=== PATIENT | female | born 1990 | race Caucasian/White ===

== ENCOUNTER 2025-01-09 03:39 | Outpatient (CLI) | payer OTHER, SELFPAY ==
[2025-01-09 17:12] LABS: Abs Immature Grans 0.04 10^3/uL (0.0-0.06); HCT 38.4 % (36.0-46.0); HGB 13.3 g/dL (11.2-15.7); Immature Grans % 0.4 %; MCH 28.9 pg (27.0-33.0); MCHC 34.6 % (32.0-36.0); MCV 83 fL (80-95); MPV 8.8 fL (8.0-11.0); Platelet Count 266 10^3/uL (130-400); RBC 4.61 10^6/uL (3.93-5.22); RDW 12.6 % (11.7-14.6); RDW-SD 38.4 fL; WBC 11.21 10^3/uL (4.4-10.8)
[2025-01-09 17:29] LABS: Hemoglobin A1C 5.3 % (<5.7)
[2025-01-09 18:07] LABS: TSH (W/Ref FT4) 2.06 uIU/mL (0.36-3.74)
[2025-01-10 19:11] LABS: HIV-1/2 Ag & Ab Screen Negative (Negative)
[2025-01-10 19:13] LABS: Hepatitis C Ab w Rflx HCV PCR Negative (Negative)
[2025-01-11 08:47] LABS: Rubella IgG Ab (UVM) Positive (See Note)
[2025-01-14 19:48] LABS: Syphilis IgG w/Reflex Nonreactive (Nonreactive)
== END 2025-01-09 03:40 | disposition home or self-care (01) ==
LOC: LBO 03:39
PROVIDERS: Visit Provider Advanced Practice Midwife
DX: Z34.91 Encounter for supervision of normal pregnancy, unspecified, first trimester (principal); Z68.31 Body mass index [BMI] 31.0-31.9, adult
CPT/HCPCS: 36415; 81220; 81222; 81329; 86787; 86803; 86850; 86900; 86901; 87340; 87389; 83036; 84443; 85025; 86762; 86780

== ENCOUNTER 2025-01-09 16:00 | Outpatient (REF) | payer OTHER, SELFPAY | END 2025-01-09 16:01 | disposition home or self-care (01) | LOC: LBN 16:00 | PROVIDERS: Visit Provider Advanced Practice Midwife | DX: Z34.91 Encounter for supervision of normal pregnancy, unspecified, first trimester (principal); Z3A.11 11 weeks gestation of pregnancy | CPT/HCPCS: 87491; 87591; 87086 ==

== ENCOUNTER 2025-02-06 17:50 | Outpatient (REF) | payer OTHER, MEDICAID, SELFPAY ==
[2025-02-08 11:23] LABS: Chlamydia Result Negative (Negative); GC Result Negative (Negative)
== END 2025-02-06 17:51 | disposition home or self-care (01) ==
LOC: LBN 17:50
PROVIDERS: Visit Provider Obstetrics & Gynecology
DX: Z34.91 Encounter for supervision of normal pregnancy, unspecified, first trimester (principal)
CPT/HCPCS: 87491; 87591

== ENCOUNTER 2025-03-08 05:31 | Outpatient (CLI) | payer MEDICAID, SELFPAY ==
--- NOTE | 2025-03-08 06:00 | DI.US_ITS ---
Exam(s) US OB 2-3 TRIMESTER EXAM: US OB 2-3 TRIMESTER CLINICAL HISTORY: Anatomy Scan, Z34.91. TECHNIQUE: Transabdominal obstetrical ultrasound performed. COMPARISON: US POCUS EXAM from 12/12/2024 FINDINGS: Number of fetuses: 1 position: VARIED Placental location: POSTERIOR No evidence of previa. Cervical length: 6.4 cm. BIOMETRIC DATA: BPD: 4.79cm, 20weeks 3days HC: 18.01cm, 20weeks 3days AC: 15.69cm, 20weeks 6days FL: 3.15cm, 19weeks 6days Cisterna magna: 3.1mm Cerebellum: 1.8cm Lateral ventricle: 5 EFW: 349.37g, 0.79lb, 87.5% Composite Age: 20weeks 3days KAVYA: 07/23/[birth year]25 Heart Rate: 131bpm Amniotic fluid : Amount of fluid is visualized within normal limits. ANATOMICAL SURVEY: Four-chambered heart: Unremarkable. LVOT: Unremarkable. RVOT: Unremarkable. Left-sided stomach: Unremarkable. urinary bladder: Unremarkable. Bilateral kidneys: Unremarkable. Three-vessel cord: Unremarkable. Cord insertion: Unremarkable. Posterior fossa:Unremarkable. ventricles: Unremarkable. nose: Unremarkable. lips: Unremarkable. palate: Unremarkable. spine: Unremarkable. Two arms and two legs: Unremarkable. IMPRESSION: 1. Single live intrauterine gestation with composite age of 20 weeks 3 days. 2. Normal anatomic survey. DATA REPOSITORY:
== END 2025-03-08 05:51 ==
PROVIDERS: Visit Provider Advanced Practice Midwife
DX: Z34.91 Encounter for supervision of normal pregnancy, unspecified, first trimester (principal); Z3A.20 20 weeks gestation of pregnancy
CPT/HCPCS: 76805

== ENCOUNTER 2025-04-05 13:43 | Emergency (ER) | payer MEDICAID, SELFPAY ==
[2025-04-05 13:45] VITALS: BP 135/77; PULSE 98; RESP 16; TEMP 36.3; O2SAT 98
[2025-04-05 13:48] VITALS: BP 135/77; PULSE 98; RESP 16; TEMP 36.3; O2SAT 98
--- NOTE | 2025-04-05 14:00 | DI.RAD_ITS ---
Exam(s) XR CHEST 2V PA LATERAL EXAM: XR CHEST 2V PA LATERAL CLINICAL HISTORY: 3-5 weeks cough, URI symptoms, eval PNA. TECHNIQUE: 2D digital imaging was performed. COMPARISON: No exams were available for comparison FINDINGS: 2 views: Heart size is normal. The mediastinum is not widened. Lungs are clear. No infiltrates nor pleural effusions. IMPRESSION: No acute pulmonary findings. DATA REPOSITORY: RADIATION DOSE DELIVERED:
--- NOTE | 2025-04-05 14:06 | ED.GENADUL_ITS ---
Discharge Plan Disposition Patient Disposition: Home Condition: Stable Discharge Details Clinical Impression: Bronchitis, Cough, , Asthma Primary Care Provider: Unknown,Unknown ED Provider: Dina Lee Home Meds and New Rx's Prescriptions: New clotrimazole [Clotrimazole-7] 1 % cream 1 appful vaginal QHS 7 Days Qty: 45 0RF azithromycin [Zithromax Z-Jhonatan] 250 mg tablet See Rx Instructions .ROUTE .COMPLEX Qty: 6 0RF Rx Instructions: For 250 mg dose pack: take 500 mg today (day 1), then 250 mg for 4 days (days 2-5) amoxicillin-pot clavulanate 875-125 mg tablet 1 tab PO BID 5 Days Qty: 10 0RF budesonide-formoterol [Symbicort] 80-4.5 mcg/actuation HFA aerosol inhaler 2 puff inhalation BID Qty: 10.2 0RF No Action Classic 28 mg iron- 800 mcg tablet 1 tab PO DAILY pyridoxine (vitamin B6) 25 mg tablet 25 mg PO TID PRN albuterol sulfate [Ventolin HFA] 90 mcg/actuation HFA aerosol inhaler 2 puff inhalation Q6H PRN pantoprazole [Protonix] 20 mg tablet,delayed release (DR/EC) 40 mg PO DAILY Qty: 30 6RF diphenhydramine HCl [Benadryl] 25 mg capsule 25 mg PO QHS PRN Discharge Instructions Instructions: Bronchitis, Adult ED Additional Instructions: You were seen in the emergency department today for evaluation of ongoing cough and shortness of breath for the last several weeks. In our department he had a full physical examination performed, and had laboratory studies that did show a slight elevation in your white blood cell count, which can be due to infection or your recent prednisone use. You had no significant elevation in your blood clot lab and I am most concerned after reviewing your workup for bronchitis. Your x-ray did not show any large areas of pneumonia, but given the duration of symptoms next steps in management would be to start you on a course of 2 antibiotics to cover the most common bacteria that can cause bronchitis, especially in folks who have asthma. You had prescription sent for azithromycin and Augmentin, 2 medications that are both safe in and work together to treat the most common bacteria that can cause lung infections. Additionally, I sent a prescription for the vaginal cream clotrimazole to treat yeast infections as a result of these antibiotics. Unfortunately, the oral medications for yeast infections are not considered safe in . Please take all of the antibiotics until they are gone, even if you start to feel better. I want you to continue to use your albuterol and inhalers for wheezing and shortness of breath. Please follow-up with your primary care provider in the next few days to discuss this visit and any symptoms that change, worsen, or persist. Thank you for allowing us to be part of your care. HPI General Mode of arrival: ambulatory . Date/Time Provider Initiated Documentation: 04/05/25 13:47 . Limitations to Documentation: no limitations . Information obtained by: patient, family, RN/MD and old records reviewed . HPI Narrative: This is a 34-year-old female, G2, P0 at 23 weeks and 4 days gestation, with a history of asthma, presenting for evaluation of several weeks of shortness of breath, cough, and upper respiratory symptoms. The patient reports that over a month ago she started with a sore throat, some voice changes, and fullness in her ears. She had tender lymphadenopathy in her anterior neck, was experiencing nasal congestion. She was treated with amoxicillin and steroids for a presumed sinus infection. She completed those courses of medications, feels like her ears have cleared up, and her lymphadenopathy is improving. She is no longer having fevers. However, her shortness of breath and cough have worsened. She has completed another steroid taper, and was started on nebulizers at home. She reports that these work only for the first few hours, she has frequent episodes of posttussive emesis and stress incontinence during coughing fits. She reports that her muscles of her chest and her abdomen are quite sore during coughing. She has a cough that is occasionally productive of blood-tinged yellow sputum, though she does not endorse isolated hemoptysis. Reports that she has not noticed any swelling in her lower extremities, calf tenderness. She is not experiencing any contractions, vaginal bleeding or discharge, though she did complete treatment for a vaginal yeast infection after taking the amoxicillin. Related Data Home Medications ?Medication ?Instructions ?Recorded ?Confirmed vits no.126-ferrous fum 1 tab PO DAILY 04/05/25 28 mg iron-folic acid 800 mcg tablet (Classic ) albuterol sulfate 90 mcg/actuation 2 puff inhalation Q 6H PRN 01/09/25 04/05/25 aerosol inhaler (Ventolin HFA) pyridoxine (vitamin B6) 25 mg 25 mg PO TID PRN 5 04/05/25 tablet pantoprazole 20 mg tablet,delayed 40 mg (2 x 20 mg) PO DAILY #30 tabs 02/06/25 04/05/25 release (Protonix) diphenhydramine HCl 25 mg capsule 25 mg PO QHS PRN 11/2504/05/25 (Benadryl) amoxicillin 875 mg-potassium 1 tab PO BID 5 days #10 t abs 04/05/25 clavulanate 125 mg tablet azithromycin 250 mg tablet See Rx Instructions PO .COM PLEX #6 04/05/25 (Zithromax Z-Jhonatan) tabs budesonide-formoterol HFA 80 2 puff inhalation BID #10 .2 grams 04/05/25 mcg-4.5 mcg/actuation aerosol inhaler (Symbicort) clotrimazole 1 % vaginal cream 1 appful vaginal QHS 7 days #45 04/05/25 (Clotrimazole-7) grams Previous Rx's ?Medication ?Instructions ?Recorded pantoprazole 20 mg tablet,delayed 40 mg (2 x 20 mg) PO DAILY #30 tabs 02/06/25 release (Protonix) amoxicillin 875 mg-potassium 1 tab PO BID 5 days #10 t abs 04/05/25 clavulanate 125 mg tablet azithromycin 250 mg tablet See Rx Instructions PO .COM PLEX #6 04/05/25 (Zithromax Z-Jhonatan) tabs budesonide-formoterol HFA 80 2 puff inhalation BID #10 .2 grams 04/05/25 mcg-4.5 mcg/actuation aerosol inhaler (Symbicort) clotrimazole 1 % vaginal cream 1 appful vaginal QHS 7 days #45 04/05/25 (Clotrimazole-7) grams Allergies Allergy/AdvReac Type Severity Reaction Status Date / Time animal dander Allergy Intermediate Other (See Verified 04/05/25 12:48 Comment) General Stated Complaint: RespSymp MARY CARMEN: 3 Exam Narrative Exam Narrative: Gen: Awake and alert, appears ill HEENT: Non-icteric sclera, PERRL. Posterior pharynx without erythema, exudate, or asymmetry/swelling Neck: Supple, full range of motion, no significant tender anterior cervical lymphadenopathy Lungs: The patient appears notably tachypneic, with increased work of breathing. Her lung sounds are clear and equal bilaterally without wheezing, rhonchi, rales CV: Appears well perfused, heart with borderline tachycardic rate and regular rhythm, strong distal pulses, no murmurs auscultated Abdomen: Gravid, soft, nontender to palpation. Uterine fundus is palpable just above the umbilicus. No rigidity, rebound, or guarding MSK: Moves 4 extremities without apparent limitation in ROM. No unilateral calf swelling or tenderness, no peripheral edema Skin: Visualized skin without rashes, cyanosis. Neuro: Normal Gait, no obvious focal deficits or facial asymmetry. Speaks in full, clear sentences. Psych: Appropriate for situation. Course Vital Signs Vital signs: Vital Signs Temperature 36.3 C L 04/05/25 13:45 Pulse 98 H 04/05/25 13:45 Respiratory Rate 16 04/05/25 13:45 Blood Pressure 135/77 04/05/25 13:45 Pulse Oximetry 98 04/05/25 13:45 Temperature 36.3 C L 04/05/25 13:48 Pulse 98 H 04/05/25 13:48 Respiratory Rate 16 04/05/25 13:48 Blood Pressure 135/77 04/05/25 13:48 Pulse Oximetry 98 04/05/25 13:48 Pain Level 3 04/05/25 13:48 Medical Decision Making This is a 34-year-old female patient presenting for evaluation of several weeks of viral upper respiratory symptoms, cough, and shortness of breath. Different ial includes but is not limited to infectious pathologies including viral upper respiratory infection, bronchitis, pneumonia. I certainly considered reactive airway disease exacerbation given her history of asthma, though the patient is reassuringly without significant wheezing on exam today. She has no history of heart failure and I do not appreciate evidence of fluid overload to suggest pulmonary edema or pleural effusion. I must consider pulmonary embolism in this patient who is and is tachypneic beyond expectations for . The physical examination is less concerning for pneumothorax, and fortunately, the patient has no evidence of hypoxia or new oxygen requirement. She had appropriate heart tones on Doppler at her visit today and is not experiencing any related complaints such as vaginal bleeding, abdominal pain or uterine contractions, or vaginal discharge. I do note a very slightly elevated blood pressure, though below Pre-E parameters at 135/77, will recheck and ensure the patient does not meet criteria for gestational hypertension/preeclampsia. We will obtain labs to include CBC, CMP, magnesium, D-dimer, Monospot, urinalysis, and Fluvid. I will obtain a chest x-ray. Given the patient's concern for inadequate hydration given her posttussive emesis and attempts to limit fluids given the urge incontinence during coughing, it is reasonable to provide her with a liter of IV fluids while awaiting results of the workup. - I reviewed the patient's laboratory studies, which reveal a leukocytosis to 15, potentially due to infection versus recent prednisone use. A very mild anemia and no thrombocytopenia is appreciated. Chemistry panel without electrolyte derangements, evidence of kidney dysfunction or liver pathology. Urinalysis not infectious and without hematuria, ketonuria, or proteinuria. Her D-dimer is in the intermediate range at 886, and this patient with a compelling infectious story, and without true hemoptysis, she meets years criteria for rule out with a cutoff of 1000. I did review the patient's x-ray, which does not show any lobar pneumonia, evidence of pulmonary edema, or other focal abnormalities. On my reevaluation the patient remains without elevation in blood pressure, new hypoxia, or tachycardia. The duration of her symptoms is most concerning for acute bronchitis. It has been several weeks since her last course of antibiotics, and at this time I would recommend initiating a 5-day course each of azithromycin and Augmentin. These prescriptions were sent to the pharmacy, and were thoroughly reviewed and are safe for use in . The patient has a history of yeast infections with antibiotic use, and topical clotrimazole was provided. The patient did request an oral agent, but oral fluconazole has not been shown to be safe during and she is amenable to the topical agent. I also sent a prescription for a Symbicort inhaler, after reviewing the HEALTH SERVICES MANAGER notes. I did send a message notifying the HEALTH SERVICES MANAGER of the workup and actions taken today in the ED. At this time, the patient has had a full medical evaluation and is safe for discharge to home. They are hemodynamically stable, ambulatory, and tolerating PO. They are understanding of the follow-up plan and return precautions. They left our facility without incident. Dina Lee MD [facility] All Active Problems (Updated 04/05/25 @ 16:08 by Dina Lee MD) Cough (Acute) Bronchitis (Acute) IBS (irritable bowel syndrome) (Chronic) BMI 31.0-31.9,adult (Acute) (Acute) Amenorrhea (Acute) Hives (Acute) Acid reflux (Chronic) Asthma (Chronic) Medical History Herpes genitalia Anxiety Surgical History [place] teeth extracted History of tonsillectomy Family History Other Diabetes Heart disease Stroke Social History Smoking risk assessment performed?: No Alcohol Intake: current History History 2 Para 0 Hx # Term Pregnancies 0 Multiple births 0 Hx # Pregnancies 0 Ectopic pregnancies 0 AB induced 0 Hx Number of Living Children 0 AB spontaneous 1 Past Pregnancies Del. Date GA/Weeks # Preg Succ Route Wgt Sex Labor Lgth Anesth esia Location Prov Complic 08/18/13 No Delivery Date: 08/18/13 Last Updated by: Silva Meyer LPN therapeutic ab
[2025-04-05] MEDS: Lactated Ringers 1,000 ML 1000 ML IV (14:48)
[2025-04-05 14:49] LABS: Abs Immature Grans 0.17 10^3/uL (0.0-0.06); HCT 33.3 % (36.0-46.0); HGB 11.0 g/dL (11.2-15.7); Immature Grans % 1.1 %; MCH 27.7 pg (27.0-33.0); MCHC 33.0 % (32.0-36.0); MCV 84 fL (80-95); MPV 8.7 fL (8.0-11.0); Platelet Count 266 10^3/uL (130-400); RBC 3.97 10^6/uL (3.93-5.22); RDW 13.0 % (11.7-14.6); RDW-SD 38.9 fL; WBC 15.53 10^3/uL (4.4-10.8)
[2025-04-05 15:02] LABS: Mono Screening Negative (Negative)
[2025-04-05 15:03] LABS: COVID-19 PCR Negative (Negative); RSV PCR Negative (Negative)
[2025-04-05 15:14] LABS: Glucose Negative (Negative)
[2025-04-05 15:18] LABS: D-Dimer 886 ng/mlFEU (<500)
[2025-04-05 15:40] LABS: ALT 57 U/L (14-59); AST 26 U/L (15-37); Albumin 2.8 g/dL (3.4-5.0); Alkaline Phosphatase 122 U/L (46-116); Anion Gap 11.8 mmol/L (3-11); BUN 5 mg/dL (7-18); Bilirubin, Total 0.3 mg/dL (0.2-1.0); CO2 24.2 mmol/L (21.0-32.0); Calcium 9.2 mg/dL (8.5-10.1); Chloride 102 mmol/L (98-107); Estimated GFR 121.47 (mL/min/1.73m2); Glucose 88 mg/dL (74-106); Magnesium 2.2 mg/dL (1.8-2.4); Potassium 3.5 mmol/L (3.5-5.1); Sodium 138 mmol/L (136-145); Total Protein 7.3 g/dL (6.4-8.2)
== END 2025-04-05 16:21 | disposition home or self-care (01) ==
PROVIDERS: Emergency Provider Emergency Medicine
DX: J40 Bronchitis, not specified as acute or chronic (principal); J45.909 Unspecified asthma, uncomplicated; Z3A.23 23 weeks gestation of pregnancy
CPT/HCPCS: 36415; 80053; 87637; 96360; 99284; 71046; 81003; 83735; 85025; 85379; 86308

== ENCOUNTER 2025-04-17 00:15 | Outpatient (CLI) | payer MEDICAID, SELFPAY ==
--- NOTE | 2025-04-17 15:00 | DI.US_ITS ---
Exam(s) US OB ESTEE WEIGHT EXAM: US OB ESTEE WEIGHT CLINICAL HISTORY: obesity in ,IUGR,o36.5990. TECHNIQUE: Transabdominal obstetrical ultrasound performed. COMPARISON: US POCUS EXAM from 12/12/2024 US US OB 2-3 TRIMESTER from 03/08/2025 FINDINGS:: Number of fetuses: 1 position: Variable Placental location: Posterior. No evidence of previa. Placental tip measures greater than 5 cm from the internal os. BIOMETRIC DATA: BPD: 69 mm, 27+ 4 weeks HC: 246 mm, 26+ 5 weeks AC: 216 mm, 26+ 0 weeks FL: 51 mm, 27+ 0 weeks EFW: 955 grams, 90th percentile, Composite Age: 26+ 6 weeks KAVYA: 18 July 2025 Heart Rate: 161 Amniotic fluid index: 26.3. Polyhydramnios. IMPRESSION: size is measuring greater than 1 week larger than gestational age. ESTEE 26.3, consistent with polyhydramnios. DATA REPOSITORY:
== END 2025-04-17 00:35 ==
LOC: DI 00:15
PROVIDERS: Visit Provider Obstetrics & Gynecology
DX: O36.5931 Maternal care for other known or suspected poor fetal growth, third trimester, fetus 1 (principal); Z3A.27 27 weeks gestation of pregnancy; O99.212 Obesity complicating pregnancy, second trimester
CPT/HCPCS: 76816

== ENCOUNTER 2025-04-24 01:41 | Outpatient (CLI) | payer MEDICAID, SELFPAY ==
[2025-04-24 16:36] LABS: Abs Immature Grans 0.23 10^3/uL (0.0-0.06); HCT 33.0 % (36.0-46.0); HGB 11.0 g/dL (11.2-15.7); Immature Grans % 1.8 %; MCH 27.8 pg (27.0-33.0); MCHC 33.3 % (32.0-36.0); MCV 84 fL (80-95); MPV 8.9 fL (8.0-11.0); Platelet Count 216 10^3/uL (130-400); RBC 3.95 10^6/uL (3.93-5.22); RDW 13.0 % (11.7-14.6); RDW-SD 39.5 fL; WBC 12.94 10^3/uL (4.4-10.8)
[2025-04-24 16:41] LABS: Glucose,1 Hr (Glucola) 139 mg/dL (80-140)
== END 2025-04-24 01:42 | disposition home or self-care (01) ==
LOC: LBO 01:41
PROVIDERS: Visit Provider Obstetrics & Gynecology
DX: O40.3XX0 Polyhydramnios, third trimester, not applicable or unspecified (principal); Z34.93 Encounter for supervision of normal pregnancy, unspecified, third trimester
CPT/HCPCS: 36415; 82950; 85025

== ENCOUNTER 2025-05-03 03:42 | Outpatient (CLI) | payer MEDICAID, SELFPAY | END 2025-05-03 03:43 | disposition home or self-care (01) | PROVIDERS: Visit Provider Obstetrics & Gynecology | DX: R73.09 Other abnormal glucose (principal); O40.9XX0 Polyhydramnios, unspecified trimester, not applicable or unspecified | CPT/HCPCS: 36415; 82951 ==

== ENCOUNTER 2025-05-07 11:45 | Outpatient (CLI) | payer MEDICAID, SELFPAY ==
--- NOTE | 2025-05-07 13:16 | TELEFU_ITS ---
Documented by User: Gisella Yuen 05/07/25 14:18 Date of service: 05/07/25 Time of Service: 12:30 Nutrition Note NOTE: Met and discussed with patient via phone. Pt was recently diagonsed w/ gestational DM after exceeding BG values at the 2 hr and 3 hr denis of the two-step diagnostic test. Has a family history of type 2 DM from her mom's side. Has IBS. Dealt with constipation in the first trimester, currently has 4 BM a day. Currently in the 3rd trimester. Just started checking blood sugars last night, and was instructed to check first thing in the morning and once after every meal, usually about 1 hr after eating. Has been having irregular sleep patterns d/t to the baby being active at night. Pt usually wakes up at 4:30AM to have breakfast, usually honey oats, whole grain toast w/ peanut butter, and milk. Will then go back to bed and wake up again at 7:30am to have a snack, then has lunch between 12-12:30, usually has multiple snacks at 3, 4, or 5pm, and then dinner between 7-9pm. Dinner is usually the biggest meal and the only time she is sitting down with family to eat. Does not have a snack after dinner. Usually consumes chicken, salmon, turkey. Dislikes water, so she will have a 30 oz becca of juice diluted w/ water. Has finger foods at work so that it is easy to consume. She reports a blood sugar of 76 this morning. Educated pt on the importance of eating enough carbs (especially fiber) and aiming for 2L of fluid intake to support a healthy , recommending she consumes around 200g of carbs a day, which can be divided up between meals and snacks. Pt was educated on 1 serving = 15 g carbs; to hit her goal of 200g she would have to consume about 13-14 servings of carbs per day, about 4.5 servings of carbs per meal. Spoke about differences in sugar level/serving sizes of whole fruit vs fruit juice vs dried fruit, snack alternatives such as nuts/seeds and plant-based milks, and importance of checking blood sugars regularly throughout the day, especially 1 hr after eating. Pt requested education handouts to support discussion we had on carbs, which will be sent via email. Pt also requested sample menus to be sent. Pt is aware that she can contact the dietitian for any questions/concerns as needed. Time Spent in Nutritional Counseling and Treatment: 30 mins Documented by User: Efren Gorman RDN 05/07/25 14:20 Nutrition Note NOTE: Met and discussed with patient via phone. Pt was recently diagonsed w/ gestational DM after exceeding BG values at the 2 hr and 3 hr denis of the two-step diagnostic test. Has a family history of type 2 DM from her mom's side. Has IBS. Dealt with constipation in the first trimester, currently has 4 BM a day. Currently in the 3rd trimester. Just started checking blood sugars last night, and was instructed to check first thing in the morning and once after every meal, usually about 1 hr after eating. Has been having irregular sleep patterns d/t to the baby being active at night. Pt usually wakes up at 4:30AM to have breakfast, usually honey oats, whole grain toast w/ peanut butter, and milk. Will then go back to bed and wake up again at 7:30am to have a snack, then has lunch between 12-12:30, usually has multiple snacks at 3, 4, or 5pm, and then dinner between 7-9pm. Dinner is usually the biggest meal and the only time she is sitting down with family to eat. Does not have a snack after dinner. Usually consumes chicken, salmon, turkey. Dislikes water, so she will have a 30 oz becca of juice diluted w/ water. Has finger foods at work so that it is easy to consume. She reports a blood sugar of 76 this morning. Educated pt on the importance of eating enough carbs (especially fiber) and aiming for 2L of fluid intake to support a healthy , recommending she consumes around 200g of carbs a day, which can be divided up between meals and snacks. Pt was educated on 1 serving = 15 g carbs; to hit her goal of 200g she would have to consume about 13-14 servings of carbs per day, about 4.5 servings of carbs per meal. Spoke about differences in sugar level/serving sizes of whole fruit vs fruit juice vs dried fruit, snack alternatives such as nuts/seeds and plant-based milks, and importance of checking blood sugars regularly throughout the day, especially 1 hr after eating. Pt requested education handouts to support discussion we had on carbs, which will be sent via email. Pt also requested sample menus to be sent. Pt is aware that she can contact the dietitian for any questions/concerns as needed. This document reviewed and approved by Efren Gorman RDN (food and beverage intern preceptor)
== END 2025-05-07 11:46 | disposition home or self-care (01) ==
LOC: DS 11:45
PROVIDERS: Visit Provider Dietitian, Registered
DX: O24.410 Gestational diabetes mellitus in pregnancy, diet controlled (principal); Z3A.28 28 weeks gestation of pregnancy
CPT/HCPCS: 00123; 97802

== ENCOUNTER → 2025-05-22 02:02 | Outpatient (CLI) | payer MEDICAID, SELFPAY ==
--- NOTE | 2025-05-22 06:15 | DI.US_ITS ---
Exam(s) US OB ESTEE WEIGHT EXAM: US OB ESTEE WEIGHT CLINICAL HISTORY: Polyhydramnios,o40.9XX0. TECHNIQUE: Transabdominal obstetrical ultrasound was performed. COMPARISON: US US OB ESTEE WEIGHT from 04/17/2025 FINDINGS: There is a single viable intrauterine gestation with cardiac activity identified-157 bpm The fetus is presently in cephalic position . Amniotic fluid: There is a normal amount of amniotic fluid with an ESTEE of 15.2cm. Placental location: The placenta is posterior grade 1,with no evidence of placenta previa. Dating parameters place this at approximately 31 weeks and 6 days gestational age, implying KAVYA of 07/18/2025. BPD measures 31 weeks and 2 days HC measures 32 weeks and 5 days AC measures 32 weeks and 0 days FL measures 31 weeks and 2 days Estimated weight is 1847 gm-4 pounds, 1 ounce Fetus is at the 87th percentile on the Hadlock scale. IMPRESSION:: Viable 3rd trimester gestation, as described above. DATA REPOSITORY:
== END ==
LOC: DI 02:02
PROVIDERS: Visit Provider Obstetrics & Gynecology
DX: O40.3XX1 Polyhydramnios, third trimester, fetus 1 (principal); Z3A.32 32 weeks gestation of pregnancy
CPT/HCPCS: 76816

== ENCOUNTER 2025-06-06 14:33 | Outpatient (CLI) | payer MEDICAID, SELFPAY ==
[2025-06-06 14:41] VITALS: BP 116/71; PULSE 86; TEMP 36.7
[2025-06-06 14:50] VITALS: BP 116/71; PULSE 86
[2025-06-06 16:46] VITALS: BP 116/71; PULSE 86; TEMP 36.7
--- NOTE | 2025-06-06 16:46 | W.OBNST ---
Date of service: 06/06/25 Time of Service: 16:46 NST Evaluation Reason for NST Reasons for Nonstress Test: GDM-DIET CONTROLLED Gestational Age Gestational Age in Weeks and Days: 32 Weeks and 3Days Test and Monitor Explained Test/Monitor Explained: Test Explained and Monitor Explained Vital Signs Blood Pressure: 116/71 Pulse: 86 Temperature: 98.1 F Weight: 189 lb Urine Results Urine Protein: Negative Urine Ketones: Negative Urine Glucose: Negative Urine Blood: Negative NST Information Date on Monitor: 06/06/25 Time on Monitor: 14:48 NST Evaluation Patient States Movement: Present FHR Baseline: 135 Variability: Moderate 6-25 bpm Accelerations: 15x15 Decelerations: None NST Results: Reactive Note Ultrasound Done: N/A. NST Note Note: Reactive, category I NST NST Reviewed and Verified by: Maria Luisa Craven
== END 2025-06-06 15:25 ==
LOC: BCD 14:33 → OBS 14:37
PROVIDERS: Visit Provider Obstetrics & Gynecology
DX: O24.410 Gestational diabetes mellitus in pregnancy, diet controlled (principal); Z3A.32 32 weeks gestation of pregnancy
CPT/HCPCS: 59025

== ENCOUNTER 2025-06-12 15:30 | Outpatient (CLI) | payer MEDICAID, SELFPAY ==
[2025-06-12 15:43] VITALS: BP 119/63; PULSE 86; TEMP 36.6
[2025-06-12 16:41] LABS: Abs Immature Grans 0.05 10^3/uL (0.0-0.06); HCT 31.8 % (36.0-46.0); HGB 10.8 g/dL (11.2-15.7); Immature Grans % 0.5 %; MCH 27.7 pg (27.0-33.0); MCHC 34.0 % (32.0-36.0); MCV 82 fL (80-95); MPV 9.4 fL (8.0-11.0); Platelet Count 201 10^3/uL (130-400); RBC 3.90 10^6/uL (3.93-5.22); RDW 13.8 % (11.7-14.6); RDW-SD 40.8 fL; WBC 9.33 10^3/uL (4.4-10.8)
[2025-06-12 17:07] LABS: ALT 27 U/L (10-49); AST 18 U/L (<34); Albumin 3.4 g/dL (3.2-5.0); Alkaline Phosphatase 119 U/L (46-116); Anion Gap 9.9 mmol/L (3-11); BUN 11 mg/dL (9-23); Bilirubin, Total 0.3 mg/dL (0.2-1.2); CO2 23.1 mmol/L (20.0-31.0); Calcium 8.7 mg/dL (8.3-10.6); Chloride 109 mmol/L (98-107); Glucose 104 mg/dL (74-106); Potassium 3.5 mmol/L (3.5-5.1); Sodium 142 mmol/L (136-145); Total Protein 6.0 g/dL (5.7-8.2)
--- NOTE | 2025-06-12 17:26 | W.OBNST ---
Date of service: 06/12/25 Time of Service: 16:00 NST Evaluation Reason for NST Reasons for Nonstress Test: GDM-DIET CONTROLLED Gestational Age Gestational Age in Weeks and Days: 33 Weeks and 2Days Test and Monitor Explained Test/Monitor Explained: Test Explained, Monitor Explained and Patient Verbalized Understanding NST Information Date on Monitor: 06/12/25 Time on Monitor: 15:40 Date off Monitor: 06/12/25 Time off Monitor: 16:14 Total Time on Monitor: 34 NST Interventions: None NST Evaluation Patient States Movement: Present FHR Baseline: 135 Variability: Moderate 6-25 bpm Accelerations: 15x15 Decelerations: None NST Results: Reactive Note Ultrasound Done: N/A. NST Note NST Reviewed and Verified by: Sneha Chapin
== END 2025-06-12 16:22 ==
LOC: BCD 15:30 → OBS 15:32
PROVIDERS: Visit Provider Obstetrics & Gynecology
DX: O24.410 Gestational diabetes mellitus in pregnancy, diet controlled (principal); Z3A.33 33 weeks gestation of pregnancy
CPT/HCPCS: 80053; 59025; 82239; 85025

== ENCOUNTER → 2025-06-17 00:20 | Outpatient (CLI) | payer MEDICAID, SELFPAY ==
--- NOTE | 2025-06-17 06:15 | DI.US_ITS ---
Exam(s) US OB ESTEE WEIGHT EXAM: US OB ESTEE WEIGHT CLINICAL HISTORY: growth,gest. diabetes,O24.419. TECHNIQUE: Transabdominal obstetrical ultrasound performed. COMPARISON: US US OB ESTEE WEIGHT from 05/22/2025 FINDINGS: Number of fetuses: 1 position: CEPHALIC Placental location: A grade 2 posterior placenta. No evidence of previa. BIOMETRIC DATA: BPD: 8.81cm, 35weeks 4days HC: 32.24cm, 36weeks 3days AC: 30.89cm, 34weeks 6days FL: 6.56cm, 33weeks 6days EFW: 2,517.21g, 5lb 9.8oz, 67.9% Composite Age: 35weeks 1day KAVYA: 07/21/2025 Heart Rate: 143bpm Amniotic fluid index: 14.24cm. The largest pocket measures 7.4 cm. IMPRESSION: 1. Single live intrauterine gestation as above. 2. Estimated weight is 2517gms. This is the 68th percentile. 3. Amniotic fluid index is 14.2 cm. The largest pocket measures 7.4 cm. DATA REPOSITORY:
== END ==
LOC: DI 00:20
PROVIDERS: Visit Provider Obstetrics & Gynecology
DX: O24.410 Gestational diabetes mellitus in pregnancy, diet controlled (principal); Z3A.35 35 weeks gestation of pregnancy
CPT/HCPCS: 76816

== ENCOUNTER 2025-06-17 07:26 | Outpatient (CLI) | payer MEDICAID, SELFPAY ==
[2025-06-17 07:32] VITALS: BP 120/71; PULSE 75
[2025-06-17 07:35] VITALS: BP 120/71; PULSE 75
--- NOTE | 2025-06-17 09:38 | W.OBNST ---
Date of service: 06/17/25 Time of Service: 09:38 NST Evaluation Reason for NST Reasons for Nonstress Test: GDM-DIET CONTROLLED Gestational Age Gestational Age in Weeks and Days: 34 Weeks and 0Days Test and Monitor Explained Test/Monitor Explained: Test Explained Vital Signs Blood Pressure: 120/71 Pulse: 75 Weight: 270 lb NST Information Date on Monitor: 06/17/25 Time on Monitor: 07:30 Date off Monitor: 06/17/25 Time off Monitor: 08:05 Total Time on Monitor: 35 NST Interventions: None Contraction Frequency: irregular CTX noted. Pt NST Evaluation Patient States Movement: Present FHR Baseline: 125 Variability: Moderate 6-25 bpm Accelerations: 15x15 Decelerations: None NST Results: Reactive Note Ultrasound Done: N/A. NST Note Note: Category 1, reactive NST JANNETH NST Reviewed and Verified by: Maria Luisa Craven
[2025-06-17 09:39] VITALS: BP 120/71; PULSE 75
== END 2025-06-17 08:36 | disposition home health service (06) ==
LOC: BCD 07:26 → OBS 07:30
PROVIDERS: Visit Provider Obstetrics & Gynecology
DX: O24.410 Gestational diabetes mellitus in pregnancy, diet controlled (principal); Z3A.34 34 weeks gestation of pregnancy
CPT/HCPCS: 59025

== ENCOUNTER 2025-06-20 08:40 | Outpatient (CLI) | payer MEDICAID, SELFPAY ==
[2025-06-20 09:23] VITALS: BP 122/77; PULSE 87; TEMP 36.5
--- NOTE | 2025-06-20 16:45 | W.OBNST ---
Date of service: 06/20/25 Time of Service: 09:00 NST Evaluation Reason for NST Reasons for Nonstress Test: GDM-INSULIN Gestational Age Gestational Age in Weeks and Days: 34 Weeks and 3Days Test and Monitor Explained Test/Monitor Explained: Test Explained, Monitor Explained and Patient Verbalized Understanding Vital Signs Blood Pressure: 122/77 Pulse: 87 Temperature: 97.7 F Urine Results Urine Protein: Negative Urine Ketones: Negative Urine Glucose: Negative Urine Blood: Negative NST Information Date on Monitor: 06/20/25 Time on Monitor: 08:30 Date off Monitor: 06/20/25 Time off Monitor: 09:50 Total Time on Monitor: 80 NST Interventions: PO Hydration Contraction Frequency: None NST Evaluation Patient States Movement: Present FHR Baseline: 135 Variability: Moderate 6-25 bpm Accelerations: 15x15 Decelerations: None NST Results: Reactive Note Ultrasound Done: N/A. NST Note NST Reviewed and Verified by: Sneha Chapin
[2025-06-20 16:46] VITALS: BP 122/77; PULSE 87; TEMP 36.5
== END 2025-06-20 10:44 ==
LOC: BCD 08:40 → OBS 08:41
PROVIDERS: Visit Provider Obstetrics & Gynecology
DX: O24.414 Gestational diabetes mellitus in pregnancy, insulin controlled (principal); Z3A.34 34 weeks gestation of pregnancy
CPT/HCPCS: 59025

== ENCOUNTER 2025-06-24 06:18 | Outpatient (CLI) | payer MEDICAID, SELFPAY ==
[2025-06-24 07:30] VITALS: BP 119/73; PULSE 84; TEMP 36.5
[2025-06-24 07:38] VITALS: BP 119/73; PULSE 84
--- NOTE | 2025-06-24 08:17 | W.OBNST ---
Date of service: 06/24/25 Time of Service: 08:17 NST Evaluation Reason for NST Reasons for Nonstress Test: GDM-DIET CONTROLLED Gestational Age Gestational Age in Weeks and Days: 35 Weeks and 0Days Test and Monitor Explained Test/Monitor Explained: Test Explained, Monitor Explained and Patient Verbalized Understanding Vital Signs Blood Pressure: 119/73 Pulse: 84 Temperature: 97.7 F Weight: 196 lb Urine Results Urine Protein: Negative Urine Ketones: Negative Urine Glucose: Negative Urine Blood: Negative NST Information Date on Monitor: 06/24/25 Time on Monitor: 07:30 Date off Monitor: 06/24/25 Time off Monitor: 08:01 Total Time on Monitor: 31 NST Interventions: PO Hydration NST Evaluation Patient States Movement: Present FHR Baseline: 135 Variability: Moderate 6-25 bpm Accelerations: 15x15 Decelerations: None NST Results: Reactive Note Ultrasound Done: N/A. NST Note Note: Category 1, reactive NST. Continue surveillance, twice weekly. visit today. NST Reviewed and Verified by: Maria Luisa Craven
[2025-06-24 08:18] VITALS: BP 119/73; PULSE 84; TEMP 36.5
== END 2025-06-24 08:04 | disposition home health service (06) ==
LOC: BCD 06:18 → OBS 07:29
PROVIDERS: Visit Provider Obstetrics & Gynecology
DX: O24.414 Gestational diabetes mellitus in pregnancy, insulin controlled (principal); Z3A.35 35 weeks gestation of pregnancy
CPT/HCPCS: 59025

== ENCOUNTER 2025-07-01 07:28 | Outpatient (CLI) | payer MEDICAID, SELFPAY ==
[2025-07-01 07:38] VITALS: PULSE 79; PULSE 95; O2SAT 99
[2025-07-01 07:41] VITALS: TEMP 36.5
[2025-07-01 07:42] VITALS: BP 116/68; PULSE 77
[2025-07-01 08:14] VITALS: BP 116/68; PULSE 77; TEMP 36.5
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
[2025-07-01 18:36] VITALS: BP 116/68; PULSE 77; TEMP 36.5
== END 2025-07-01 09:33 ==
LOC: BCD 07:28 → OBS 07:30
PROVIDERS: Visit Provider Obstetrics & Gynecology
DX: O24.410 Gestational diabetes mellitus in pregnancy, diet controlled (principal); Z3A.36 36 weeks gestation of pregnancy
CPT/HCPCS: 59025

== ENCOUNTER 2025-07-03 08:16 | Outpatient (CLI) | payer MEDICAID, SELFPAY ==
[2025-07-03 16:11] VITALS: BP 120/74; PULSE 76
[2025-07-03 16:35] VITALS: BP 120/74; PULSE 76; TEMP 36.4
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
[2025-07-04 18:17] VITALS: BP 120/74; PULSE 76; TEMP 36.4
== END 2025-07-03 17:59 ==
LOC: BCD 08:17 → OBS 15:28
PROVIDERS: Visit Provider Obstetrics & Gynecology
DX: O24.410 Gestational diabetes mellitus in pregnancy, diet controlled (principal); Z3A.36 36 weeks gestation of pregnancy
CPT/HCPCS: 59025; 87081